=== PATIENT | male | born 1950 | race Caucasian/White ===

== ENCOUNTER 2020-02-15 14:25 | Emergency (ER) | payer MEDICARE, SELFPAY ==
[2020-02-15] VITALS (8 sets, daily range): BP systolic 98–126; BP diastolic 57–79; PULSE 76–109; RESP 14–32; TEMP 37.2; O2SAT 93–97; BMI 35.9
--- NOTE | 2020-02-15 15:00 | XRR_ITS ---
PROCEDURE INFORMATION: Exam: XR Chest, 1 View Exam date and time: 02/15/2020 3:01 PM Age: 69 years old Clinical indication: Cough and dyspnea; Additional info: Dyspnea/cough TECHNIQUE: Imaging protocol: XR of the chest Views: 1 view. COMPARISON: CR Chest 1 [place] [id number] 02/20/2019 4:55 AM FINDINGS: Lungs: Lungs are clear bilaterally. Pleural space: No pleural effusion. No pneumothorax. Heart/Mediastinum: Stable mild enlargement of the cardiac silhouette. Mediastinal contours are unremarkable. Vasculature: Vascular calcifications in the aorta. Bones/joints: Unremarkable for age. XR/XR chest 1V portable [id number] IMPRESSION: 1. No acute cardiopulmonary process. 2. Incidental/nonacute findings are listed in the report.
--- NOTE | 2020-02-15 15:00 | ECG_ITS ---
[facility] Test Date: 2020-02-15 Pat Name: Israel Lopez Department: Room: Gender: Male Sharepoint Engineer: : 1950 Requested By: Trenton Cuellar Order Number: [id number] Cait MD: Delilah Borden M.D. Measurements Intervals [place] Rate: 98 P: [place]: -1 QRS: -24 QRSD: 85 T: 50 QT: 337 QTc: 431 Interpretive Statements ATRIAL FIBRILLATION BORDERLINE LEFT AXIS DEVIATION [QRS AXIS < -20] NONSPECIFIC T-WAVE ABNORMALITY ABNORMAL RHYTHM ECG Compared to ECG 08/25/2018 11:56:35 No significant changes Electronically Signed On 02-15-2020 18:33:53 CDT by Delilah Borden M.D. [id number]
--- NOTE | 2020-02-15 15:12 | W.ED.ARRPALP ---
Documented by User: Trenton Cool DO 02/17/20 06:52 HPI - Arrhythmia/Palpitations General: Chief Complaint: Arrhythmia/Palpitations Stated Complaint: COVID +/ high heart rate Time Seen by Provider: 02/15/20 14:49 History of Present Illness: HPI narrative: 61-year-old male with history of atrial fibrillation. He tested positive earlier this week for Covid. He stated he had elevated heart rate at home and some chest discomfort since increasing cough and shortness of breath he is had minimally productive cough cough. He has not been monitoring his oxygen saturations at home. He usually takes metoprolol, he had been on Eliquis but ran out and lately has been taking aspirin. MD complaint: rapid heart beat, heart racing , irregular heart beat and atrial fibrillation Onset (ago): hour(s) Duration: intermittent Severity: moderate Context: occurred during rest Arrhythmia history: atrial fibrillation Associated symptoms: Reports cough and short of breath; Deny anxiety, diaphoresis, muscle cramps, nausea, paresthesias, pre-syncope, sense of impending doom, syncope or vomiting Treatments prior to arrival: beta-shan Review of Systems Const: Denies: diaphoresis ENMT: Denies: throat pain, ear or mastoid pain, nasal discharge or nasal congestion Card: Denies: syncope or pre-syncope Resp: Denies: dyspnea, productive cough or non-productive cough GI: Denies: nausea or vomiting : Denies: flank pain, dysuria, urinary frequency or urinary urgency Musc: Denies: muscle cramps Skin/Breast: Denies: rash or pruritus Psych: Denies: anxiety PFS ED PFSH: Medical History (Updated 02/15/20 @ 18:00 by Trenton Cool DO) Atrial fibrillation Physical Exam Const: COMMON NORMALS: no acute distress GENERAL APPEARANCE: cooperative and comfortable ORIENTATION/CONSCIOUSNESS: Yes awake, Yes oriented to person, Yes oriented to place and Yes oriented to time HENMT: COMMON NORMALS: normocephalic, atraumatic and hearing grossly normal bilaterally HEAD & SCALP: normocephalic and atraumatic Resp: COMMON NORMALS: normal respiratory effort, No retractions, No use of accessory muscles and clear to auscultation bilaterally AUSCULTATION: clear to auscultation bilaterally Cardio: RHYTHM: abnormal rhythm irregularly irregular GI: COMMON NORMALS: Soft to palpation and No hepatosplenomegaly present AUSCULTATION: Yes normoactive bowel sounds PALPATION: Yes Soft to palpation, No Tenderness to palpation present (GI), No Guarding due to palpation present (GI) and Yes No hepatosplenomegaly present Extremity: COMMON NORMALS: normal to inspection, capillary refill normal, no clubbing, cyanosis or edema, no calf tenderness and no pedal edema Neuro: SENSORIUM/ORIENTATION: Yes oriented to person, Yes oriented to place and Yes oriented to time Skin: COMMON NORMALS: no rashes or lesions noted GENERAL SKIN EXAM: no rashes or lesions noted Course Vital Signs: Vital signs: Vital Signs Temperature 99.0 F 02/15/20 14:40 Pulse Rate 88 02/15/20 19:19 Respiratory Rate 20 H 02/15/20 19:19 Blood Pressure 120/79 02/15/20 18:59 Pulse Oximetry 96 02/15/20 19:19 MDM - Arrhythmia/Palpitations MDM Narrative: Medical decision making narrative: Patient care turned over to Dr. Garcia at change of shift. See his notes for final diagnosis and disposition. Lab Data: Labs: Lab Results 02/15/20 02/15/20 02/15/20 Range/Units 15:10 15:10 15:10 WBC 6.3 (4.0-10.0) 10^3/ uL RBC 5.20 (4.1-5.3) 10^6/u L Hgb 16.0 (11.7-16.6) g/dL Hct 49.7 (42.0-52.0) % MCV 95.6 H (80-94) fL MCH 30.8 (28.0-34.0) pg MCHC 32.2 (30.0-36.0) g/dL RDW 12.4 (12.1-15.1) % Plt Count 192 (130-400) 10^3/c mm MPV 10.6 H (7.4-10.4) fL Neut % (Auto) 36.6 % Lymph % (Auto) 52.2 % [place] % (Auto) 10.1 % Eos % (Auto) 0.5 % Baso % (Auto) 0.3 % Neut # (Auto) 2.29 (1.8-7.7) 10^3/u L Lymph # (Auto) 3.3 (0.8-4.8) 10^3/u L [place] # (Auto) 0.6 (0.2-0.9) 10^3/u L Eos # (Auto) 0.0 (0.0-0.8) 10^3/u L Baso # (Auto) 0.0 (0.0-0.1) 10^3/u L Nucleated RBC % (a uto) 0 % Nucleated RBCs # 0.0 /100WBC Sodium Cancelled Potassium Cancelled Chloride Cancelled Carbon Dioxide Cancelled Anion Gap Cancelled BUN Cancelled Creatinine Cancelled GFR Calculation Cancelled Glucose Cancelled Calculated Osmolal ity Cancelled Calcium Cancelled Total Bilirubin Cancelled AST Cancelled ALT Cancelled Alkaline Phosphata se Cancelled Troponin T Baselin e Cancelled Troponin T 120 Min [place] (0-15) ng/L Delta Troponin T (0-10) ABS# Total Protein Cancelled Albumin Cancelled Globulin Cancelled Urine Color (Yellow) Urine Appearance (CLEAR) Urine pH (5-7) Ur Specific Gravit y (1.005-1.030) Urine Protein (Negative) Urine Glucose (UA) (Normal) Urine Ketones (Negative) Urine Blood (Negative) Urine Nitrate (Negative) Urine Bilirubin (Negative) Urine Urobilinogen (Negative) mg/dL Ur Leukocyte Gloria ase (Negative) Urine RBC (0-2) /hpf Urine WBC (0-5) /hpf Ur Squamous Epith Cells (0-5) /hpf Amorphous Sediment Urine Bacteria (NONE) /hpf Hyaline Casts /lpf Urine Mucus /hpf 02/15/20 02/15/20 02/15/20 Range/Units 15:50 15:59 15:59 WBC (4.0-10.0) 10^3/ uL RBC (4.1-5.3) 10^6/u L Hgb (11.7-16.6) g/dL Hct (42.0-52.0) % MCV (80-94) fL MCH (28.0-34.0) pg MCHC (30.0-36.0) g/dL RDW (12.1-15.1) % Plt Count (130-400) 10^3/c mm MPV (7.4-10.4) fL Neut % (Auto) % Lymph % (Auto) % [place] % (Auto) % Eos % (Auto) % Baso % (Auto) % Neut # (Auto) (1.8-7.7) 10^3/u L Lymph # (Auto) (0.8-4.8) 10^3/u L [place] # (Auto) (0.2-0.9) 10^3/u L Eos # (Auto) (0.0-0.8) 10^3/u L Baso # (Auto) (0.0-0.1) 10^3/u L Nucleated RBC % (a uto) % Nucleated RBCs # /100WBC Sodium 138 Potassium 4.4 Chloride 101 Carbon Dioxide 25 Anion Gap 16.4 BUN 25 H Creatinine 1.2 GFR Calculation 60.2 L Glucose 99 Calculated Osmolal ity 290 Calcium 8.7 Total Bilirubin 0.4 AST 28 ALT 24 Alkaline Phosphata se 71 Troponin T Baselin e 31 H Troponin T 120 Min [place] (0-15) ng/L Delta Troponin T (0-10) ABS# Total Protein 7.3 Albumin 4.0 Globulin 3.3 Urine Color Dark yellow (Yellow) Urine Appearance Clear (CLEAR) Urine pH 5 (5-7) Ur Specific Gravit y 1.020 (1.005-1.030) Urine Protein Trace (Negative) Urine Glucose (UA) Norm (Normal) Urine Ketones 1+ H (Negative) Urine Blood Neg (Negative) Urine Nitrate Negative (Negative) Urine Bilirubin 1+ H (Negative) Urine Urobilinogen 1 H (Negative) mg/dL Ur Leukocyte Gloria ase Negative (Negative) Urine RBC None (0-2) /hpf Urine WBC 0-4 H (0-5) /hpf Ur Squamous Epith Cells None (0-5) /hpf Amorphous Sediment Not Reportable Urine Bacteria Trace (NONE) /hpf Hyaline Casts 15-25 H /lpf Urine Mucus 1+ /hpf 17/20 Range/Units 18:14 WBC (4.0-10.0) 10^3/ uL RBC (4.1-5.3) 10^6/u L Hgb (11.7-16.6) g/dL Hct (42.0-52.0) % MCV (80-94) fL MCH (28.0-34.0) pg MCHC (30.0-36.0) g/dL RDW (12.1-15.1) % Plt Count (130-400) 10^3/c mm MPV (7.4-10.4) fL Neut % (Auto) % Lymph % (Auto) % [place] % (Auto) % Eos % (Auto) % Baso % (Auto) % Neut # (Auto) (1.8-7.7) 10^3/u L Lymph # (Auto) (0.8-4.8) 10^3/u L [place] # (Auto) (0.2-0.9) 10^3/u L Eos # (Auto) (0.0-0.8) 10^3/u L Baso # (Auto) (0.0-0.1) 10^3/u L Nucleated RBC % (a uto) % Nucleated RBCs # /100WBC Sodium Potassium Chloride Carbon Dioxide Anion Gap BUN Creatinine GFR Calculation Glucose Calculated Osmolal ity Calcium Total Bilirubin AST ALT Alkaline Phosphata se Troponin T Baselin e Troponin T 120 Min [place] 27.93 H (0-15) ng/L Delta Troponin T -3.07 L (0-10) ABS# Total Protein Albumin Globulin Urine Color (Yellow) Urine Appearance (CLEAR) Urine pH (5-7) Ur Specific Gravit y (1.005-1.030) Urine Protein (Negative) Urine Glucose (UA) (Normal) Urine Ketones (Negative) Urine Blood (Negative) Urine Nitrate (Negative) Urine Bilirubin (Negative) Urine Urobilinogen (Negative) mg/dL Ur Leukocyte Gloria ase (Negative) Urine RBC (0-2) /hpf Urine WBC (0-5) /hpf Ur Squamous Epith Cells (0-5) /hpf Amorphous Sediment Urine Bacteria (NONE) /hpf Hyaline Casts /lpf Urine Mucus /hpf Discharge Plan Discharge Patient Disposition: Home Clinical Impression: Atrial fibrillation, COVID-19 virus infection Condition: Stable Discharge Orders: Discharge Order (Routine); Ordered 02/15/20 Ordered By: Mirza Garcia Referrals: Nicole Garza FNP [Primary Care Provider] - Discharge Diet: Usual diet Discharge Activity: Limit activity as instructed Patient Instructions: Atrial Fibrillation (ED) Activity Restrictions/Additional Instructions: Return if you have difficulty breathing or develop chest pain. Discharge Date/Time: 02/15/20 19:20 Coding Level of Care Code ED Program Eligibility Specialist for Chg Fwd Exam Detailed Documented by User: Mirza Garcia DO 02/15/20 19:05 HPI - Arrhythmia/Palpitations General: Chief Complaint: Arrhythmia/Palpitations Stated Complaint: COVID +/ high heart rate Time Seen by Provider: 02/15/20 14:49 PFSH ED PFSH: Medical History (Updated 02/15/20 @ 18:00 by Trenton Cool DO) Atrial fibrillation Course Vital Signs: Vital signs: Vital Signs Temperature 99.0 F 02/15/20 14:40 Pulse Rate 88 02/15/20 19:19 Respiratory Rate 20 H 02/15/20 19:19 Blood Pressure 120/79 02/15/20 18:59 Pulse Oximetry 96 02/15/20 19:19 MDM - Arrhythmia/Palpitations MDM Narrative: Medical decision making narrative: Checked out by Dr. Alcaraz to me at shift change regarding a second troponin. The patient is converted to sinus rhythm. He is asymptomatic and would like to go home. Second troponin did not elevate. His discharge instructions were written. Lab Data: Labs: Lab Results 02/15/20 02/15/20 02/15/20 Range/Units 15:10 15:10 15:10 WBC 6.3 (4.0-10.0) 10^3/ uL RBC 5.20 (4.1-5.3) 10^6/u L Hgb 16.0 (11.7-16.6) g/dL Hct 49.7 (42.0-52.0) % MCV 95.6 H (80-94) fL MCH 30.8 (28.0-34.0) pg MCHC 32.2 (30.0-36.0) g/dL RDW 12.4 (12.1-15.1) % Plt Count 192 (130-400) 10^3/c mm MPV 10.6 H (7.4-10.4) fL Neut % (Auto) 36.6 % Lymph % (Auto) 52.2 % [place] % (Auto) 10.1 % Eos % (Auto) 0.5 % Baso % (Auto) 0.3 % Neut # (Auto) 2.29 (1.8-7.7) 10^3/u L Lymph # (Auto) 3.3 (0.8-4.8) 10^3/u L [place] # (Auto) 0.6 (0.2-0.9) 10^3/u L Eos # (Auto) 0.0 (0.0-0.8) 10^3/u L Baso # (Auto) 0.0 (0.0-0.1) 10^3/u L Nucleated RBC % (a uto) 0 % Nucleated RBCs # 0.0 /100WBC Sodium Cancelled Potassium Cancelled Chloride Cancelled Carbon Dioxide Cancelled Anion Gap Cancelled BUN Cancelled Creatinine Cancelled GFR Calculation Cancelled Glucose Cancelled Calculated Osmolal ity Cancelled Calcium Cancelled Total Bilirubin Cancelled AST Cancelled ALT Cancelled Alkaline Phosphata se Cancelled Troponin T Baselin e Cancelled Troponin T 120 Min [place] (0-15) ng/L Delta Troponin T (0-10) ABS# Total Protein Cancelled Albumin Cancelled Globulin Cancelled Urine Color (Yellow) Urine Appearance (CLEAR) Urine pH (5-7) Ur Specific Gravit y (1.005-1.030) Urine Protein (Negative) Urine Glucose (UA) (Normal) Urine Ketones (Negative) Urine Blood (Negative) Urine Nitrate (Negative) Urine Bilirubin (Negative) Urine Urobilinogen (Negative) mg/dL Ur Leukocyte Gloria ase (Negative) Urine RBC (0-2) /hpf Urine WBC (0-5) /hpf Ur Squamous Epith Cells (0-5) /hpf Amorphous Sediment Urine Bacteria (NONE) /hpf Hyaline Casts /lpf Urine Mucus /hpf 02/15/20 02/15/20 02/15/20 Range/Units 15:50 15:59 15:59 WBC (4.0-10.0) 10^3/ uL RBC (4.1-5.3) 10^6/u L Hgb (11.7-16.6) g/dL Hct (42.0-52.0) % MCV (80-94) fL MCH (28.0-34.0) pg MCHC (30.0-36.0) g/dL RDW (12.1-15.1) % Plt Count (130-400) 10^3/c mm MPV (7.4-10.4) fL Neut % (Auto) % Lymph % (Auto) % [place] % (Auto) % Eos % (Auto) % Baso % (Auto) % Neut # (Auto) (1.8-7.7) 10^3/u L Lymph # (Auto) (0.8-4.8) 10^3/u L [place] # (Auto) (0.2-0.9) 10^3/u L Eos # (Auto) (0.0-0.8) 10^3/u L Baso # (Auto) (0.0-0.1) 10^3/u L Nucleated RBC % (a uto) % Nucleated RBCs # /100WBC Sodium 138 Potassium 4.4 Chloride 101 Carbon Dioxide 25 Anion Gap 16.4 BUN 25 H Creatinine 1.2 GFR Calculation 60.2 L Glucose 99 Calculated Osmolal ity 290 Calcium 8.7 Total Bilirubin 0.4 AST 28 ALT 24 Alkaline Phosphata se 71 Troponin T Baselin e 31 H Troponin T 120 Min [place] (0-15) ng/L Delta Troponin T (0-10) ABS# Total Protein 7.3 Albumin 4.0 Globulin 3.3 Urine Color Dark yellow (Yellow) Urine Appearance Clear (CLEAR) Urine pH 5 (5-7) Ur Specific Gravit y 1.020 (1.005-1.030) Urine Protein Trace (Negative) Urine Glucose (UA) Norm (Normal) Urine Ketones 1+ H (Negative) Urine Blood Neg (Negative) Urine Nitrate Negative (Negative) Urine Bilirubin 1+ H (Negative) Urine Urobilinogen 1 H (Negative) mg/dL Ur Leukocyte Gloria ase Negative (Negative) Urine RBC None (0-2) /hpf Urine WBC 0-4 H (0-5) /hpf Ur Squamous Epith Cells None (0-5) /hpf Amorphous Sediment Not Reportable Urine Bacteria Trace (NONE) /hpf Hyaline Casts 15-25 H /lpf Urine Mucus 1+ /hpf 10/17/20 Range/Units 18:14 WBC (4.0-10.0) 10^3/ uL RBC (4.1-5.3) 10^6/u L Hgb (11.7-16.6) g/dL Hct (42.0-52.0) % MCV (80-94) fL MCH (28.0-34.0) pg MCHC (30.0-36.0) g/dL RDW (12.1-15.1) % Plt Count (130-400) 10^3/c mm MPV (7.4-10.4) fL Neut % (Auto) % Lymph % (Auto) % [place] % (Auto) % Eos % (Auto) % Baso % (Auto) % Neut # (Auto) (1.8-7.7) 10^3/u L Lymph # (Auto) (0.8-4.8) 10^3/u L [place] # (Auto) (0.2-0.9) 10^3/u L Eos # (Auto) (0.0-0.8) 10^3/u L Baso # (Auto) (0.0-0.1) 10^3/u L Nucleated RBC % (a uto) % Nucleated RBCs # /100WBC Sodium Potassium Chloride Carbon Dioxide Anion Gap BUN Creatinine GFR Calculation Glucose Calculated Osmolal ity Calcium Total Bilirubin AST ALT Alkaline Phosphata se Troponin T Baselin e Troponin T 120 Min [place] 27.93 H (0-15) ng/L Delta Troponin T -3.07 L (0-10) ABS# Total Protein Albumin Globulin Urine Color (Yellow) Urine Appearance (CLEAR) Urine pH (5-7) Ur Specific Gravit y (1.005-1.030) Urine Protein (Negative) Urine Glucose (UA) (Normal) Urine Ketones (Negative) Urine Blood (Negative) Urine Nitrate (Negative) Urine Bilirubin (Negative) Urine Urobilinogen (Negative) mg/dL Ur Leukocyte Gloria ase (Negative) Urine RBC (0-2) /hpf Urine WBC (0-5) /hpf Ur Squamous Epith Cells (0-5) /hpf Amorphous Sediment Urine Bacteria (NONE) /hpf Hyaline Casts /lpf Urine Mucus /hpf Discharge Plan Discharge Patient Disposition: Home Clinical Impression: Atrial fibrillation, COVID-19 virus infection Condition: Stable Discharge Orders: Discharge Order (Routine); Ordered 02/15/20 Ordered By: Mirza Garcia Referrals: Nicole Garza FNP [Primary Care Provider] - Discharge Diet: Usual diet Discharge Activity: Limit activity as instructed Patient Instructions: Atrial Fibrillation (ED) Activity Restrictions/Additional Instructions: Return if you have difficulty breathing or develop chest pain. Discharge Date/Time: 02/15/20 19:20 Coding Level of Care Code ED Program Eligibility Specialist for Chg Fwd Exam Detailed
[2020-02-15 15:33] LABS: Basophils % 0.3 %; Eosinophils % 0.5 %; Hematocrit 49.7 % (42.0-52.0); Lymphocytes # 3.3 10^3/uL (0.8-4.8); Lymphocytes % 52.2 %; Mean Corpuscular HGB Conc 32.2 g/dL (30.0-36.0); Mean Corpuscular Hemoglobin 30.8 pg (28.0-34.0); Mean Corpuscular Volume 95.6 fL (80-94); Mean Platelet Volume 10.6 fL (7.4-10.4); Monocytes # 0.6 10^3/uL (0.2-0.9); Monocytes % 10.1 %; Neutrophils # 2.29 10^3/uL (1.8-7.7); Neutrophils % 36.6 %; Nucleated Red Blood Cells % 0 %; Platelet Count 192 10^3/cmm (130-400); Red Cell Distribution Width 12.4 % (12.1-15.1); White Blood Count 6.3 10^3/uL (4.0-10.0)
[2020-02-15 16:21] LABS: Alanine Aminotransferase 24 U/L (0-41); Alkaline Phosphatase 71 IU/L (40-130); Blood Urea Nitrogen 25 mg/dL (8-23); Calcium 8.7 mg/dL (8.5-10.5); Carbon Dioxide 25 mmol/L (22-29); Chloride 101 mmol/L (98-107); Globulin 3.3 g/dL (1.3-4.6); Glomerular Filtration Rate 60.2 mL/min (90-130); Glucose 99 mg/dL (65-115); Osmolality Calculated 290 mOsm/kg (285-295); Sodium 138 mmol/L (136-145); Total Bilirubin 0.4 mg/dL (0.15-1.2); Total Protein 7.3 g/dL (6.6-8.7)
[2020-02-15 16:23] LABS: Troponin(5th) Baseline 31 ng/L (0-15)
[2020-02-15 16:26] LABS: Anion Gap 16.4 (5-19)
[2020-02-15 16:27] LABS: Aspartate Amino Transferase 28 U/L (0-40); Potassium 4.4 mmol/L (3.5-5.1)
--- NOTE | 2020-02-15 17:00 | ECG_ITS ---
[facility] Test Date: 2020-02-15 Pat Name: Israel Lopez Department: Room: Gender: Male Lands Resource Manager: : 1950 Requested By: Trenton Cuellar Order Number: [id number] Cait MD: Delilah Borden M.D. Measurements Intervals [place] Rate: 77 P: 14 PA: 181 QRS: -26 QRSD: 89 T: 61 QT: 389 QTc: 443 Interpretive Statements SINUS RHYTHM WITH OCCASIONAL VENTRICULAR PREMATURE COMPLEXES BORDERLINE LEFT AXIS DEVIATION [QRS AXIS < -20] MINIMAL VOLTAGE CRITERIA FOR LVH, CONSIDER NORMAL VARIANT [MEETS CRITERIA IN ONE OF: R(aVL), S(V1), R(V5), R(V5/V6)+S(V1)] NONSPECIFIC T-WAVE ABNORMALITY Compared to ECG 02/15/2020 14:49:24 Ventricular premature complex(es) now present Atrial fibrillation no longer present T-wave abnormality still present Electronically Signed On 02-16-2020 19:51:08 CDT by Delilah Borden M.D. [id number]
[2020-02-15 17:11] LABS: Add Urine Microscopic? YES; Bilirubin Urine 1+ (Negative); Blood Urine Neg (Negative); Glucose Urine UA Norm (Normal); Ketones Urine 1+ (Negative); Leukocyte Esterase Urine Negative (Negative); Nitrate Urine Negative (Negative); Protein Urine Trace (Negative); Urine Appearance Clear (CLEAR); Urine Color Dark Yellow (Yellow); Urobilinogen Urine 1 mg/dL (Negative); pH Urine 5 (5-7)
[2020-02-15 17:12] LABS: Add Urine Culture? No; Bacteria Urine TRACE /hpf; Hyaline Casts Urine 15-25 /lpf; Mucus Urine 1+ /hpf; WBC Urine 0-4 /hpf (0-5)
[2020-02-15 18:50] LABS: Troponin 5 2HR 27.93 ng/L (0-15)
[2020-02-15 18:54] LABS: Troponin 5 2HR Delta -3.07 ABS# (0-10)
== END 2020-02-15 19:20 | disposition home or self-care (01) ==
PROVIDERS: Family Medicine; Emergency Provider Emergency Medicine; PCP Registered Nurse
DX: I48.91 Unspecified atrial fibrillation (principal); U07.1 COVID-19
CPT/HCPCS: 12345; 36415; 71045; 80053; 81001; 84484; 85025; 93005; 99283

== ENCOUNTER → 2020-07-08 15:34 | Outpatient (BNVA) | payer MEDICARE, SELFPAY | PROVIDERS: PCP Registered Nurse; Visit Provider Internal Medicine | DX: I50.9 Heart failure, unspecified (principal); I48.91 Unspecified atrial fibrillation | CPT/HCPCS: 80048; 83880 ==

== ENCOUNTER 2020-12-07 15:23 | Outpatient (CLI) | payer MEDICARE, SELFPAY | END 2020-12-07 15:24 | disposition home or self-care (01) | PROVIDERS: PCP Registered Nurse; Visit Provider Internal Medicine Critical Care Medicine | DX: R05 Cough (principal) | CPT/HCPCS: 87015; 87070; 87116; 87205; 87206; 87801 ==